=== PATIENT | female | born 1970 | race Caucasian/White ===

== ENCOUNTER 2020-11-30 12:53 | Outpatient (CLI) | payer OTHER, SELFPAY ==
--- NOTE | ~2020-11-30 | MM_ITS ---
EXAMINATION: MM screening birgit BI w rachell HISTORY: Screening mammogram TECHNIQUE: Craniocaudal and mediolateral oblique 3-D tomosynthesis images were obtained and synthetic 2-D images were generated. CAD analysis was submitted and interpreted. COMPARISON: No prior mammogram is available for comparison at this institution. BREAST PARENCHYMAL COMPOSITION: There are scattered areas of fibroglandular density. FINDINGS: There is no evidence of suspicious mass, calcification, or architectural distortion to sugg est malignancy in either breast. There has been no suspicious interval change. IMPRESSION: 1. No mammographic evidence of malignancy. 2. Recommend routine screening mammography in one year. BI-RADS Category 1: Negative Reviewed, dictated and finalized at location A.
== END 2020-11-30 12:54 | disposition home or self-care (01) ==
PROVIDERS: PCP Family Medicine Adolescent Medicine; Visit Provider Nurse Practitioner Obstetrics & Gynecology
DX: Z12.31 Encounter for screening mammogram for malignant neoplasm of breast (principal)
CPT/HCPCS: 77063; 77067

== ENCOUNTER 2024-01-29 14:06 | Outpatient (CLI) | payer OTHER, SELFPAY ==
--- NOTE | ~2024-01-29 | NM_ITS ---
EXAMINATION: NM thyroid scan w uptake DATE: 01/30/2024 14:28 INDICATION: Hyperthyroidism COMPARISON: None. TECHNIQUE: 354 microcuries [id number] was administered orally in capsule form. Scintigraphic images of th e thyroid gland were obtained at 24 hours. Thyroid uptake was calculated by the technologist. FINDINGS: The thyroid uptake is 44.7% (normal 10-30%), with the right lobe measuring 22.6% uptake and the left 22.1%. There is no focal area of decreased or increased activity to suggest hypofunctioning or hyperf unctioning nodule. IMPRESSION: 1. Normal thyroid scintigraphy with significantly elevated diffuse 24-hour iodine uptake consistent with Graves' disease. Reviewed, dictated and finalized at location B. IMPRESSION: 1. Normal thyroid scintigraphy with significantly elevated diffuse 24-hour iod ine uptake consistent with Graves' disease.
== END 2024-01-29 14:07 | disposition home or self-care (01) ==
LOC: ANHIMG 14:10
PROVIDERS: PCP Family Medicine Adolescent Medicine; Visit Provider Internal Medicine
DX: E05.90 Thyrotoxicosis, unspecified without thyrotoxic crisis or storm (principal)
CPT/HCPCS: 78014; A9516

== ENCOUNTER 2024-06-03 16:06 | Outpatient (CLI) | payer OTHER, SELFPAY ==
--- NOTE | ~2024-06-03 | US_ITS ---
EXAMINATION: US thyroid DATE: 06/03/2024 16:41 INDICATION: Goiter. TECHNIQUE: Multiple ultrasound images of the thyroid were obtained. COMPARISON: Thyroid scintigraphy 01/30/2024 FINDINGS: The right thyroid lobe measures 4.7 x 1.6 x 2.1 cm. The left thyroid lobe measures 5.1 x 2.1 x 2.4 c m. The thyroid demonstrates heterogeneous hypoechogenicity. Vascularity is increased. In the right t hyroid lobe, there is a 9 mm solid, hypoechoic than tall nodule with irregular margin without echogen ic foci (TI-RADS TR4). IMPRESSION: 1. Small thyroid nodule, likely not clinically significant. No follow-up is needed. 2. Heterogeneous, hypervascular thyroid, consistent with Graves' disease. Reviewed, dictated and finalized at location [] IMPRESSION: 1. Small thyroid nodule, likely not clinically significant. No follow-up is nee ded. 2. Heterogeneous, hypervascular thyroid, consistent with Graves' disease.
== END 2024-06-03 16:07 | disposition home or self-care (01) ==
PROVIDERS: PCP Family Medicine Adolescent Medicine; Visit Provider Internal Medicine
DX: E05.90 Thyrotoxicosis, unspecified without thyrotoxic crisis or storm (principal); E04.1 Nontoxic single thyroid nodule
CPT/HCPCS: 76536

== ENCOUNTER 2025-02-26 13:06 | Outpatient (CLI) | payer OTHER, SELFPAY ==
--- NOTE | ~2025-02-26 | US_ITS ---
US thyroid INDICATION: Thyroid nodule TECHNIQUE: Real-time sonographic images of the thyroid gland were obtained. COMPARISON: No prior studies for comparison. FINDINGS: The right thyroid lobe measures 5.8 x 2.2 x 2.4 cm. The left thyroid lobe measures 5.9 x 2 x 1.7 cm. Thyroid echotexture is diffusely heterogeneous and increased. Normal thyroid vascularity. In the right lobe posteriorly there is a 10 mm cyst of no clinical significance. Normal vascular flow is present. IMPRESSION: 1. Enlarged heterogeneous thyroid gland. No suspicious solid masses are identified which meet sonogr aphic criteria for biopsy. Reviewed, dictated and finalized at location B. IMPRESSION: 1. Enlarged heterogeneous thyroid gland. No suspicious solid masses are identi fied which meet sonographic criteria for biopsy.
== END 2025-02-26 13:07 | disposition home or self-care (01) ==
LOC: MICIMG 13:07
PROVIDERS: PCP Family Medicine Adolescent Medicine; Visit Provider Internal Medicine
DX: E05.90 Thyrotoxicosis, unspecified without thyrotoxic crisis or storm (principal); E04.1 Nontoxic single thyroid nodule; R73.03 Prediabetes
CPT/HCPCS: 76536

== ENCOUNTER 2025-05-28 11:48 | Outpatient (CLI) | payer OTHER, SELFPAY ==
--- NOTE | ~2025-05-28 | DEXA_ITS ---
Bone Density Report Name: YVONNE GREER Age: 54 Sex: Female Ethnicity: White Date of : 1970 Indication: postmenopausal; screening for osteoporosis; prior fracture; Referring Provider: PAULETTE, JOSH Palacios Study: Bone densitometry was performed. Exam Date: May 28, 2025 Accession number: [id number] Bone Density: Region BMD T-score Z-score Classification AP Spine(L1-L4) 0.915 -1.2 0.0 Osteopenia Femoral Neck (Left) 0.808 -0.4 0.8 Normal Total Hip (Left) 0.939 0.0 0.8 Normal Femoral Neck (Right) 0.874 0.2 1.4 Normal Total Hip (Right) 0.985 0.4 1.1 Normal Total Hip Mean 0.962 0.2 1.0 Normal World Health Organization criteria for BMD impression classify patients as: Normal (T-score at or above -1.0), Osteopenia (T-score between -1.0 and -2.5), or Osteoporosis (T-score at or below -2.5). 10-year Fracture Risk: FRAX not reported because: Prior hip or vertebral fracture Clinical Information Provided by Patient: Have had a previous hip or vertebral fracture Has had a low trauma fracture Has used the following medications: HRT (i.e. estrogen/hormone therapy), Vitamin D Has the following medical conditions: graves disease Patient maximum height was 64 Menopause Age: 52 No regular weight bearing exercise Does not regularly consume dairy products Drinks caffeinated beverages Onset of menses at age 12 Number of children 0 Impression: The patient has low bone mass, based on the Total Spine T-score. The patient has risk factors, including: previous fracture. Discussion: INCREASED RISK OF FRACTURE DUE TO HISTORY OF FRACTURE. The patient's previous fracture puts the patient at high risk of a future fracture. In untreated patients, the risk of osteoporotic fracture increases approximately two-fold for each 1.0 SD decrease in T-score. Low bone density is not the only risk factor for fracture; also consider factors such as patient's age, frailty or poor health, risk of falling, risk of injury, previous osteoporotic fracture, family history of osteoporosis, cigarette smoking, low body weight, etc. Not everyone with a low trauma fracture has osteoporosis; osteomalacia and other metabolic bone disorders should also be considered. Patients who have osteoporosis should be evaluated for specific diseases and conditions (secondary causes) that may cause or contribute to bone loss and fracture risk. National Osteoporosis Foundation (NOF) recommends pharmacologic intervention for patients with a prior hip or vertebral fracture regardless of BMD T-score. The patient should follow a healthful lifestyle (good nutrition with adequate calcium and vitamin D, and appropriate weight-bearing exercise). Follow-Up: Consider a repeat BMD and Vertebral Fracture Assessment (VFA) exam in 2 years or sooner if medically necessary, to reassess this patient's status. Reported by: RACH on 05/28/2025 12:59:00 PM. Reviewed, dictated and finalized at location A.
== END 2025-05-28 11:49 | disposition home or self-care (01) ==
LOC: MICIMG 11:51
PROVIDERS: PCP Family Medicine Adolescent Medicine; Visit Provider Student in an Organized Health Care Education/Training Program
DX: M85.88 Other specified disorders of bone density and structure, other site (principal); Z13.820 Encounter for screening for osteoporosis; Z78.0 Asymptomatic menopausal state
CPT/HCPCS: 77080